=== PATIENT | female | born 1965 | race Caucasian/White ===

== ENCOUNTER 2019-02-13 12:24 | Emergency (ER) | payer OTHER ==
[~2019-02-13] VITALS: Ht 162.6 cm; Wt 73.0 kg
[~2019-02-13 12:24] MED LIST: ASPI-611 PO; BUDE10.22 INH; HYDR-4383 PO; METO-539 PO; MULT-342 PO; ROSU10TA2 PO
[2019-02-13] MEDS ORDERED: levetiracetam inj 1,000 MG in normal saline 100ml IV soln 90 ML IV ONE (12:30)
[2019-02-13 13:07] LABS: BASOPHILS % (AUTO) 0.3 % (0-1); EOSINOPHILS # (AUTO) 0.1 X10'3 (0-0.9); EOSINOPHILS % (AUTO) 1.7 % (0-6); HEMATOCRIT 41.7 % (35.0-45.0); HEMOGLOBIN 14.1 g/dl (12.0-16.0); LYMPHOCYTES # (AUTO) 1.8 X10'3 (1.1-4.8); LYMPHOCYTES % (AUTO) 31.4 % (21-51); MEAN CORPUSCULAR HEMOGLOBIN 30.9 PG (27.0-31.0); MEAN CORPUSCULAR HGB CONC 33.8 g/dL (33.0-36.5); MEAN CORPUSCULAR VOLUME 91.4 FL (78-98); MEAN PLATELET VOLUME 6.9 FL (7.4-10.4); MONOCYTES # (AUTO) 0.6 X10'3 (0-0.9); MONOCYTES % (AUTO) 11.1 % (2-12); NEUTROPHILS # (AUTO) 3.2 X10'3 (1.8-7.7); NEUTROPHILS % (AUTO) 55.5 % (42-75); PLATELET COUNT 230 X10'3 (140-440); RED BLOOD COUNT 4.57 X10'6 (4.20-5.60); WHITE BLOOD COUNT 5.8 X10'3 (4.5-11.0)
[2019-02-13 13:18] LABS: ALANINE AMINOTRANSFERASE 29 U/L (12-78); ALBUMIN 3.7 G/DL (3.4-5.0); ALBUMIN/GLOBULIN RATIO 0.9 (1.1-1.5); ALKALINE PHOSPHATASE 88 IU/L (46-116); ANION GAP 12 (8-16); ASPARTATE AMINO TRANSFERASE 13 U/L (10-37); BILIRUBIN,TOTAL 0.5 MG/DL (0.1-1.0); BLOOD UREA NITROGEN 15 MG/DL (7-18); BUN/CREATININE RATIO 17.2 (6.6-38.0); CALCIUM 8.8 MG/DL (8.5-10.1); CHLORIDE 102 MMOL/L (99-107); CREATININE 0.87 MG/DL (0.40-0.90); GLUCOSE 101 MG/DL (70-104); PARTIAL THROMBOPLASTIN TIME 29 SECONDS (22-32); POTASSIUM 3.8 MMOL/L (3.5-5.1); SODIUM 140 MMOL/L (135-145); TOTAL CARBON DIOXIDE 26.3 MMOL/L (24-32); TOTAL PROTEIN 7.7 G/DL (6.4-8.2); eGFR 69 ML/MIN
[2019-02-13 13:19] LABS: ETHANOL < 0.010 GM/DL (0.0-0.010)
--- NOTE | 2019-02-13 13:19 | NUR ---
To CT via WC.
[2019-02-13 13:38] LABS: CLARITY,URINE CLEAR (Clear); COLOR,URINE YELLOW (Yellow); GLUCOSE, URINE NEGATIVE (Neg); KETONES,URINE NEGATIVE (Neg); LEUKOCYTE ESTERASE ,URINE NEGATIVE (Neg); NITRITES, URINE NEGATIVE (Neg); OCCULT BLOOD,URINE TRACE-LYSED (Neg); PROTEIN,URINE NEGATIVE (Neg); UROBILINOGEN,URINE 0.2 E.U/dL (0.2-1.0)
[2019-02-13 13:39] LABS: UA COLLECTION TYPE CLN CATCH MIDSTREAM
[2019-02-13 13:45] LABS: URINE AMPHETAMINE SCREEN NEGATIVE (Neg); URINE BARBITUATE SCREEN NEGATIVE (Neg); URINE BENZODIAZEPINES SCREEN NEGATIVE (Neg); URINE CANNABINOID SCREEN NEGATIVE (Neg); URINE COCAINE SCREEN NEGATIVE (Neg); URINE METHADONE SCREEN NEGATIVE (Neg); URINE OPIATE SCREEN NEGATIVE (Neg); URINE PHENCYCLIDINE SCREEN NEGATIVE (Neg)
[2019-02-13 13:48] LABS: BACTERIA,URINE NONE SEEN /HPF (Neg); MUCUS STRANDS NONE SEEN /LPF (Neg); RBC,URINE 0-2 /HPF (0-2); SQUAMOUS EPITHELIAL CELL,UR NONE SEEN /LPF (FEW); WBC,URINE NONE SEEN /HPF (0-4)
[2019-02-13] MEDS ORDERED: KEP500T PO (13:57)
[2019-02-13 14:21] VITALS: BP 143/99
[2019-02-13] MEDS ORDERED: MECL-111 PO (16:57)
== END 2019-02-13 14:25 | disposition home or self-care (01) ==
LOC: ER 12:24
DX: R56.9 Unspecified convulsions (principal); E78.00 Pure hypercholesterolemia, unspecified; I10 Essential (primary) hypertension; E11.9 Type 2 diabetes mellitus without complications; Z90.710 Acquired absence of both cervix and uterus; Z98.890 Other specified postprocedural states; Z91.040 Latex allergy status; Z88.2 Allergy status to sulfonamides; Z79.82 Long term (current) use of aspirin; Z79.899 Other long term (current) drug therapy
CPT/HCPCS: 36415; 70450; 71045; 80053; 80305; 80320; 81001; 85025; 85610; 85730; 93005; 99284; J1953; 96365

== ENCOUNTER 2019-02-13 16:10 | Emergency (ER) | payer OTHER ==
[~2019-02-13] VITALS: Ht 162.6 cm; Wt 73.6 kg
[~2019-02-13 16:10] MED LIST changes: +KEP500T PO
[2019-02-13 16:23] VITALS: BP 137/97
[2019-02-13] MEDS ORDERED: ketorolac trometh inj. 60 MG/2 ML VIAL IM ONE (16:50)
[2019-02-13] MEDS ORDERED: MECL-111 PO (16:57)
== END 2019-02-13 17:17 | disposition home or self-care (01) ==
LOC: ER 16:11
DX: R42 Dizziness and giddiness (principal); M54.2 Cervicalgia; E78.00 Pure hypercholesterolemia, unspecified; I10 Essential (primary) hypertension; Z90.710 Acquired absence of both cervix and uterus; Z98.890 Other specified postprocedural states; Z88.2 Allergy status to sulfonamides; Z91.040 Latex allergy status; Z79.82 Long term (current) use of aspirin; Z79.899 Other long term (current) drug therapy
CPT/HCPCS: 93005; 96372; 99283; J1885

== ENCOUNTER 2020-11-18 20:59 | Emergency (ER) | payer OTHER ==
[~2020-11-18] VITALS: Ht 193 cm; Wt 82.3 kg
[~2020-11-18 20:59] MED LIST changes: +MECL-159 PO
[2020-11-18 23:41] LABS: BASOPHILS # (AUTO) 0.1 X10'3 (0-0.2); BASOPHILS % (AUTO) 0.5 % (0-1); EOSINOPHILS # (AUTO) 0.2 X10'3 (0-0.9); EOSINOPHILS % (AUTO) 1.1 % (0-6); HEMATOCRIT 43.1 % (35.0-45.0); HEMOGLOBIN 14.3 g/dl (12.0-16.0); LYMPHOCYTES # (AUTO) 2.6 X10'3 (1.1-4.8); LYMPHOCYTES % (AUTO) 16.6 % (21-51); MEAN CORPUSCULAR HEMOGLOBIN 30.2 PG (27.0-31.0); MEAN CORPUSCULAR HGB CONC 33.1 g/dL (33.0-36.5); MEAN CORPUSCULAR VOLUME 91.2 FL (78-98); MEAN PLATELET VOLUME 6.8 FL (7.4-10.4); MONOCYTES # (AUTO) 1.3 X10'3 (0-0.9); MONOCYTES % (AUTO) 8.2 % (2-12); NEUTROPHILS # (AUTO) 11.4 X10'3 (1.8-7.7); NEUTROPHILS % (AUTO) 73.6 % (42-75); PLATELET COUNT 306 X10'3 (140-440); RED BLOOD COUNT 4.73 X10'6 (4.20-5.60); RED CELL DISTRIBUTION WIDTH 13.1 % (11.5-14.5); WHITE BLOOD COUNT 15.5 X10'3 (4.5-11.0)
[2020-11-18 23:54] LABS: ALANINE AMINOTRANSFERASE 41 U/L (12-78); ALBUMIN 3.9 G/DL (3.4-5.0); ALKALINE PHOSPHATASE 100 IU/L (46-116); ANION GAP 10 (8-16); ASPARTATE AMINO TRANSFERASE 22 U/L (10-37); BILIRUBIN,TOTAL 0.4 MG/DL (0.1-1.0); BLOOD UREA NITROGEN 11 MG/DL (7-18); BUN/CREATININE RATIO 12.9 (6.6-38.0); CALCIUM 9.3 MG/DL (8.5-10.1); CHLORIDE 103 MMOL/L (99-107); CREATININE 0.85 MG/DL (0.40-0.90); GLUCOSE 112 MG/DL (70-104); LIPASE 250 U/L (73-393); POTASSIUM 3.8 MMOL/L (3.5-5.1); SODIUM 139 MMOL/L (135-145); TOTAL CARBON DIOXIDE 26.1 MMOL/L (24-32); TOTAL PROTEIN 7.8 G/DL (6.4-8.2); eGFR 70 ML/MIN
[2020-11-19] MEDS ORDERED: fentaNYL/PF 50MCG/1 ML 2ML syringe IV ONE (00:10)
[2020-11-19] MEDS ORDERED: ondansetron/PF 4mg/2ml inj IV ONE (00:10)
[2020-11-19] MEDS ORDERED: ONDA8TAB13 PO (00:54)
[2020-11-19] MEDS ORDERED: HYDR-3965 PO (00:54)
[2020-11-19] MEDS ORDERED: ketorolac trometh. 30mg/ml inj. IV ONE (00:55)
[2020-11-19 01:32] VITALS: BP 122/76
[2020-11-20] MEDS ORDERED: OXYC-150 PO (23:01)
== END 2020-11-19 01:33 | disposition home or self-care (01) ==
LOC: ER 21:00
DX: R10.11 Right upper quadrant pain (principal); R10.31 Right lower quadrant pain; E78.00 Pure hypercholesterolemia, unspecified; I10 Essential (primary) hypertension; E03.9 Hypothyroidism, unspecified; Z90.49 Acquired absence of other specified parts of digestive tract; Z90.710 Acquired absence of both cervix and uterus; Z98.890 Other specified postprocedural states; Z91.040 Latex allergy status; Z88.2 Allergy status to sulfonamides; Z79.82 Long term (current) use of aspirin; Z79.899 Other long term (current) drug therapy
CPT/HCPCS: 36415; 74176; 80053; 83690; 85025; 96374; 96375; 99284; J1885; J2405; J3010

== ENCOUNTER 2020-11-20 20:28 | Emergency (ER) | payer OTHER ==
[~2020-11-20] VITALS: Ht 162.6 cm; Wt 82.3 kg
[~2020-11-20 20:28] MED LIST changes: +HYDR-3965 PO; +ONDA8TAB13 PO
[2020-11-20 20:58] LABS: BASOPHILS # (AUTO) 0.1 X10'3 (0-0.2); BASOPHILS % (AUTO) 0.8 % (0-1); EOSINOPHILS # (AUTO) 0.1 X10'3 (0-0.9); EOSINOPHILS % (AUTO) 1.8 % (0-6); HEMATOCRIT 37.8 % (35.0-45.0); HEMOGLOBIN 12.7 g/dl (12.0-16.0); LYMPHOCYTES # (AUTO) 2.4 X10'3 (1.1-4.8); LYMPHOCYTES % (AUTO) 34.1 % (21-51); MEAN CORPUSCULAR HEMOGLOBIN 30.7 PG (27.0-31.0); MEAN CORPUSCULAR HGB CONC 33.6 g/dL (33.0-36.5); MEAN CORPUSCULAR VOLUME 91.6 FL (78-98); MEAN PLATELET VOLUME 6.6 FL (7.4-10.4); MONOCYTES # (AUTO) 0.8 X10'3 (0-0.9); MONOCYTES % (AUTO) 11.2 % (2-12); NEUTROPHILS # (AUTO) 3.6 X10'3 (1.8-7.7); NEUTROPHILS % (AUTO) 52.1 % (42-75); PLATELET COUNT 262 X10'3 (140-440); RED BLOOD COUNT 4.13 X10'6 (4.20-5.60); WHITE BLOOD COUNT 6.9 X10'3 (4.5-11.0)
[2020-11-20 21:06] LABS: ALANINE AMINOTRANSFERASE 32 U/L (12-78); ALBUMIN 3.5 G/DL (3.4-5.0); ALBUMIN/GLOBULIN RATIO 0.9 (1.1-1.5); ALKALINE PHOSPHATASE 88 IU/L (46-116); ANION GAP 8 (8-16); ASPARTATE AMINO TRANSFERASE 14 U/L (10-37); BILIRUBIN,TOTAL 0.3 MG/DL (0.1-1.0); BLOOD UREA NITROGEN 8 MG/DL (7-18); BUN/CREATININE RATIO 8.9 (6.6-38.0); CHLORIDE 106 MMOL/L (99-107); GLUCOSE 123 MG/DL (70-104); POTASSIUM 3.6 MMOL/L (3.5-5.1); SODIUM 143 MMOL/L (135-145); TOTAL CARBON DIOXIDE 28.6 MMOL/L (24-32); TOTAL PROTEIN 7.5 G/DL (6.4-8.2); eGFR 65 ML/MIN
[2020-11-20] MEDS ORDERED: oxyCODONE/APAP 10/325mg tablet PO ONE (23:00)
[2020-11-20] MEDS ORDERED: OXYC-150 PO (23:01)
[2020-11-20 23:16] VITALS: BP 114/70
[2020-11-21] MEDS ORDERED: LISI-790 PO (12:38)
[2020-11-21] MEDS ORDERED: LEVO25TA7 PO (12:39)
[2020-11-21] MEDS ORDERED: ONDA4TAB12 PO (12:40)
[2020-11-21] MEDS ORDERED: LEVE500T99 PO (12:41)
[2020-11-21] MEDS ORDERED: BUDE10.26 IH (13:43)
[2020-11-21] MEDS ORDERED: LIDO1ADH78 TD (13:44)
[2020-11-21] MEDS ORDERED: HYDR-3965 PO (13:45)
== END 2020-11-20 23:17 | disposition home or self-care (01) ==
LOC: ER 20:28
DX: K92.1 Melena (principal); R10.31 Right lower quadrant pain; R42 Dizziness and giddiness; E78.00 Pure hypercholesterolemia, unspecified; I10 Essential (primary) hypertension; E03.9 Hypothyroidism, unspecified; Z90.49 Acquired absence of other specified parts of digestive tract; Z90.710 Acquired absence of both cervix and uterus; Z98.890 Other specified postprocedural states; Z88.2 Allergy status to sulfonamides; Z91.040 Latex allergy status; Z79.82 Long term (current) use of aspirin; Z79.899 Other long term (current) drug therapy
CPT/HCPCS: 36415; 80053; 85025; 99283

== ENCOUNTER 2020-11-21 08:13 | Inpatient (IN) | payer OTHER ==
[~2020-11-21] VITALS: Ht 162.6 cm; Wt 82.3 kg
[~2020-11-21 08:13] MED LIST changes: +OXYC-150 PO
[2020-11-21 09:08] LABS: BASOPHILS % (AUTO) 0.2 % (0-1); EOSINOPHILS # (AUTO) 0.1 X10'3 (0-0.9); EOSINOPHILS % (AUTO) 0.7 % (0-6); HEMATOCRIT 36.2 % (35.0-45.0); HEMOGLOBIN 12.2 g/dl (12.0-16.0); LYMPHOCYTES % (AUTO) 11.3 % (21-51); MEAN CORPUSCULAR HGB CONC 33.8 g/dL (33.0-36.5); MEAN CORPUSCULAR VOLUME 91.6 FL (78-98); MEAN PLATELET VOLUME 6.7 FL (7.4-10.4); MONOCYTES # (AUTO) 0.7 X10'3 (0-0.9); MONOCYTES % (AUTO) 7.6 % (2-12); NEUTROPHILS # (AUTO) 7.3 X10'3 (1.8-7.7); NEUTROPHILS % (AUTO) 80.2 % (42-75); PLATELET COUNT 254 X10'3 (140-440); RED BLOOD COUNT 3.95 X10'6 (4.20-5.60); RED CELL DISTRIBUTION WIDTH 13.1 % (11.5-14.5)
[2020-11-21 09:21] LABS: PARTIAL THROMBOPLASTIN TIME 28 SECONDS (22-32)
[2020-11-21 09:24] LABS: ALANINE AMINOTRANSFERASE 28 U/L (12-78); ALBUMIN 3.4 G/DL (3.4-5.0); ALBUMIN/GLOBULIN RATIO 0.9 (1.1-1.5); ALKALINE PHOSPHATASE 78 IU/L (46-116); ANION GAP 10 (8-16); ASPARTATE AMINO TRANSFERASE 17 U/L (10-37); BILIRUBIN,TOTAL 0.3 MG/DL (0.1-1.0); BLOOD UREA NITROGEN 10 MG/DL (7-18); BUN/CREATININE RATIO 10.3 (6.6-38.0); CALCIUM 8.5 MG/DL (8.5-10.1); CHLORIDE 104 MMOL/L (99-107); CREATININE 0.97 MG/DL (0.40-0.90); GLUCOSE 107 MG/DL (70-104); POTASSIUM 3.5 MMOL/L (3.5-5.1); SODIUM 141 MMOL/L (135-145); TOTAL CARBON DIOXIDE 27.3 MMOL/L (24-32); TOTAL PROTEIN 7.2 G/DL (6.4-8.2); eGFR 60 ML/MIN
[2020-11-21] MEDS ORDERED: iohexol 300mg/ml 100ml inj. ONE (09:47)
[2020-11-21 10:10] LABS: CLARITY,URINE CLEAR (Clear); COLOR,URINE STRAW (Yellow); GLUCOSE, URINE NEGATIVE (Neg); KETONES,URINE NEGATIVE (Neg); LEUKOCYTE ESTERASE ,URINE NEGATIVE (Neg); NITRITES, URINE NEGATIVE (Neg); OCCULT BLOOD,URINE TRACE-LYSED (Neg); PH,URINE 5.5 (4.8-8.0); PROTEIN,URINE NEGATIVE (Neg); UROBILINOGEN,URINE 0.2 E.U/dL (0.2-1.0)
[2020-11-21 10:11] LABS: UA COLLECTION TYPE CLN CATCH MIDSTREAM
[2020-11-21 10:18] LABS: BACTERIA,URINE FEW /HPF (Neg); RBC,URINE 0-2 /HPF (0-2); SQUAMOUS EPITHELIAL CELL,UR FEW /LPF (FEW); WBC,URINE 0-4 /HPF (0-4)
[2020-11-21] MEDS ORDERED: mag hydrox/Alum hydrox/simeth 30ml oral suspension PO PRN (11:55)
[2020-11-21] MEDS ORDERED: magnesium hydroxide 30ml (MOM) UD suspension PO PRN (11:55)
[2020-11-21] MEDS ORDERED: acetaminophen 325mg tablet PO PRN (11:55)
[2020-11-21] MEDS ORDERED: LISI-790 PO (12:38)
[2020-11-21] MEDS ORDERED: LEVO25TA7 PO (12:39)
[2020-11-21] MEDS ORDERED: ONDA4TAB12 PO (12:40)
[2020-11-21] MEDS ORDERED: LEVE500T99 PO (12:41)
[2020-11-21] MEDS: normal saline 1000ml 1,000 ML IV SCH ×2 (12:48→21:55)
[2020-11-21] MEDS: morphine 2 MG/ML inj. syringe IV PRN (12:48)
[2020-11-21] MEDS ORDERED: BUDE10.26 IH (13:43)
[2020-11-21] MEDS ORDERED: LIDO1ADH78 TD (13:44)
[2020-11-21] MEDS ORDERED: HYDR-3965 PO (13:45)
[2020-11-21] MEDS ORDERED: ondansetron 4mg rapidly disintigrating tab PO PRN (14:25)
[2020-11-21] MEDS ORDERED: HYDROcodone/acetaminophen 5mg/325mg tablet PO PRN (14:25)
--- NOTE | 2020-11-21 14:40 | NUR ---
relieving RN for break, pt is resting quietly in dark room, gave her a warm blanket, waiting for bed assignment
--- NOTE | 2020-11-21 17:18 | NUR ---
PT ASSISTED TO THE BATHROOM, STATES THAT HER RECTAL BLEEDING HAS INCREASED AND THAT HER PAIN LEVEL IS 8/10. PT'S RN, JEM, NOTIFIED
[2020-11-21] MEDS ORDERED: levalbuterol 0.63mg/3ml nebule IH PRN (17:50)
[2020-11-21] MEDS: budesonide 0.5mg/2ml UD nebule IH SCH (20:00)
[2020-11-21] MEDS: metoprolol succinate 25mg (24-HOUR) SR. Tablet PO SCH (20:00)
[2020-11-21] MEDS ORDERED: non-formulary drug (Budesonide/Formoterol Fumarate (Budesonide-Formoterol 160-4.5) 2 PUFFS IH SCH (20:00)
[2020-11-21] MEDS ORDERED: albuterol 2.5 MG/3 ML nebule NEB SCH (20:00)
[2020-11-21] MEDS: levetiracetam 250mg tablet PO SCH (21:22)
[2020-11-21] MEDS: ondansetron/PF 4mg/2ml inj IV PRN (21:27)
[2020-11-21 22:00] VITALS: BP 109/70
[2020-11-22 02:00] VITALS: BP 102/69
[2020-11-22] MEDS: morphine 2 MG/ML inj. syringe IV PRN ×2 (02:26→22:45)
[2020-11-22] MEDS: normal saline 1000ml 1,000 ML IV SCH ×3 (02:32→22:48)
[2020-11-22 06:00] VITALS: BP 90/56
--- NOTE | 2020-11-22 06:22 | NUR ---
Patient in room PCU 3023. I have received report from NAYA Keene and had the opportunity to ask questions and assume patient care.
--- NOTE | 2020-11-22 06:22 | NUR ---
report, patient plan of care given to and discussed with NAYA Gomez.
[2020-11-22 07:40] LABS: BASOPHILS % (AUTO) 0.3 % (0-1); EOSINOPHILS # (AUTO) 0.1 X10'3 (0-0.9); EOSINOPHILS % (AUTO) 2.5 % (0-6); HEMATOCRIT 32.9 % (35.0-45.0); HEMOGLOBIN 11.3 g/dl (12.0-16.0); LYMPHOCYTES % (AUTO) 44.1 % (21-51); MEAN CORPUSCULAR HGB CONC 34.2 g/dL (33.0-36.5); MEAN CORPUSCULAR VOLUME 93.4 FL (78-98); MEAN PLATELET VOLUME 6.8 FL (7.4-10.4); MONOCYTES # (AUTO) 0.5 X10'3 (0-0.9); MONOCYTES % (AUTO) 12.1 % (2-12); NEUTROPHILS # (AUTO) 1.9 X10'3 (1.8-7.7); PLATELET COUNT 230 X10'3 (140-440); RED BLOOD COUNT 3.52 X10'6 (4.20-5.60); RED CELL DISTRIBUTION WIDTH 12.9 % (11.5-14.5); WHITE BLOOD COUNT 4.5 X10'3 (4.5-11.0)
[2020-11-22] MEDS: multivitamins, therapeutics tablet PO SCH (07:46)
[2020-11-22] MEDS: levoTHYROXINE 25mcg tablet PO SCH (07:47)
[2020-11-22] MEDS: levetiracetam 250mg tablet PO SCH ×2 (07:47→19:18)
[2020-11-22] MEDS: atorvastatin 20mg tablet PO SCH (07:55)
[2020-11-22 07:56] LABS: ALBUMIN 2.9 G/DL (3.4-5.0); ANION GAP 10 (8-16); BLOOD UREA NITROGEN 11 MG/DL (7-18); BUN/CREATININE RATIO 13.1 (6.6-38.0); CALCIUM 8.5 MG/DL (8.5-10.1); CHLORIDE 110 MMOL/L (99-107); CREATININE 0.84 MG/DL (0.40-0.90); GLUCOSE 81 MG/DL (70-104); POTASSIUM 3.5 MMOL/L (3.5-5.1); SODIUM 144 MMOL/L (135-145); TOTAL CARBON DIOXIDE 24.1 MMOL/L (24-32); eGFR 71 ML/MIN
[2020-11-22] MEDS: LIDOcaine 5% patch TP SCH (07:56)
[2020-11-22] MEDS: lisinopril 5mg tablet PO SCH (08:00)
[2020-11-22] MEDS: metoprolol succinate 25mg (24-HOUR) SR. Tablet PO SCH ×2 (08:00→19:19)
[2020-11-22] MEDS: budesonide 0.5mg/2ml UD nebule IH SCH ×2 (08:04→20:08)
[2020-11-22 11:00] VITALS: BP 106/70
[2020-11-22] MEDS ORDERED: PEG 3350/Na sulf,bicarb,Cl/KCl oral sol 4 liter bottle PO ONE (14:15)
[2020-11-22 18:00] VITALS: BP 124/88
--- NOTE | 2020-11-22 18:21 | NUR ---
Problems reprioritized. Patient report given, questions answered & plan of care reviewed with NAYA Perry.
[2020-11-22] MEDS: metroNIDAZOLE-Flagyl 500mg/NS 100 ML IV SCH (19:19)
[2020-11-22] MEDS: ciprofloxacin lact 400MG/200ML 200 ML IV SCH (19:19)
[2020-11-22 22:00] VITALS: BP 138/71
[2020-11-23] VITALS (9 sets, daily range): BP systolic 105–129; BP diastolic 60–90
[2020-11-23] MEDS: metroNIDAZOLE-Flagyl 500mg/NS 100 ML IV SCH ×3 (00:06→15:19)
--- NOTE | 2020-11-23 06:12 | NUR ---
Problems reprioritized. Patient report given, questions answered & plan of care reviewed with NAYA Gomez.
[2020-11-23] MEDS: levetiracetam 250mg tablet PO SCH ×2 (07:15→19:25)
[2020-11-23] MEDS: levoTHYROXINE 25mcg tablet PO SCH (07:15)
[2020-11-23 07:28] LABS: BASOPHILS % (AUTO) 0.3 % (0-1); EOSINOPHILS # (AUTO) 0.1 X10'3 (0-0.9); EOSINOPHILS % (AUTO) 2.5 % (0-6); HEMATOCRIT 31.4 % (35.0-45.0); HEMOGLOBIN 10.7 g/dl (12.0-16.0); LYMPHOCYTES # (AUTO) 1.5 X10'3 (1.1-4.8); LYMPHOCYTES % (AUTO) 30.5 % (21-51); MEAN CORPUSCULAR HEMOGLOBIN 31.2 PG (27.0-31.0); MEAN CORPUSCULAR HGB CONC 34.2 g/dL (33.0-36.5); MEAN CORPUSCULAR VOLUME 91.2 FL (78-98); MEAN PLATELET VOLUME 6.8 FL (7.4-10.4); MONOCYTES # (AUTO) 0.6 X10'3 (0-0.9); MONOCYTES % (AUTO) 11.8 % (2-12); NEUTROPHILS # (AUTO) 2.7 X10'3 (1.8-7.7); NEUTROPHILS % (AUTO) 54.9 % (42-75); PLATELET COUNT 222 X10'3 (140-440); RED BLOOD COUNT 3.44 X10'6 (4.20-5.60); RED CELL DISTRIBUTION WIDTH 12.9 % (11.5-14.5)
[2020-11-23 07:49] LABS: ANION GAP 11 (8-16); BLOOD UREA NITROGEN 9 MG/DL (7-18); BUN/CREATININE RATIO 11.5 (6.6-38.0); CALCIUM 8.1 MG/DL (8.5-10.1); CHLORIDE 107 MMOL/L (99-107); CREATININE 0.78 MG/DL (0.40-0.90); GLUCOSE 92 MG/DL (70-104); POTASSIUM 3.3 MMOL/L (3.5-5.1); SODIUM 145 MMOL/L (135-145); TOTAL CARBON DIOXIDE 26.9 MMOL/L (24-32); eGFR 77 ML/MIN
[2020-11-23] MEDS: budesonide 0.5mg/2ml UD nebule IH SCH ×2 (07:55→20:38)
[2020-11-23] MEDS: LIDOcaine 5% patch TP SCH (08:00)
[2020-11-23] MEDS: atorvastatin 20mg tablet PO SCH (08:00)
[2020-11-23] MEDS ORDERED: MIDAZolam 1 MG/ML 5ML VIAL ONE (09:08)
[2020-11-23] MEDS ORDERED: fentaNYL/PF 50MCG/1 ML 2ML syringe ONE (09:08)
[2020-11-23] MEDS: lisinopril 5mg tablet PO SCH (12:31)
[2020-11-23] MEDS: multivitamins, therapeutics tablet PO SCH (12:31)
[2020-11-23] MEDS: metoprolol succinate 25mg (24-HOUR) SR. Tablet PO SCH ×2 (12:32→19:26)
[2020-11-23] MEDS: ciprofloxacin lact 400MG/200ML 200 ML IV SCH ×2 (12:33→19:26)
[2020-11-23] MEDS ORDERED: potassium Cl 20 mEq SR tablet PO PRN (14:15)
[2020-11-23] MEDS ORDERED: potassium Cl 40MEQ/1/2NS 520ml 520 ML IV PRN (14:15)
[2020-11-23] MEDS ORDERED: magnesium Cl slow-release 64mg tablet PO PRN (14:15)
[2020-11-23] MEDS ORDERED: magnesium 4gm in 100ml NS 100 ML IV PRN (14:15)
[2020-11-23] MEDS: potassium Cl 20 mEq SR tablet PO PRN ×2 (14:23→19:25)
[2020-11-23] MEDS: normal saline 1000ml 1,000 ML IV SCH ×2 (14:26→23:55)
--- NOTE | 2020-11-23 18:05 | NUR ---
report received from, plan of care discussed with NAYA Gomez
--- NOTE | 2020-11-23 18:22 | NUR ---
Problems reprioritized. Patient report given, questions answered & plan of care reviewed with NAYA Fonseca.
[2020-11-23] MEDS: K and/or MAG REPLACEMENT MC SCH (19:26)
[2020-11-24] MEDS: metroNIDAZOLE-Flagyl 500mg/NS 100 ML IV SCH ×2 (00:15→08:54)
[2020-11-24 02:00] VITALS: BP 91/53
[2020-11-24] MEDS: ondansetron/PF 4mg/2ml inj IV PRN (04:18)
[2020-11-24] MEDS: normal saline 1000ml 1,000 ML IV SCH (05:04)
[2020-11-24 06:00] VITALS: BP 93/62
[2020-11-24 06:46] LABS: ALBUMIN 3.1 G/DL (3.4-5.0); ANION GAP 11 (8-16); BLOOD UREA NITROGEN 4 MG/DL (7-18); BUN/CREATININE RATIO 5.4 (6.6-38.0); CALCIUM 8.4 MG/DL (8.5-10.1); CHLORIDE 108 MMOL/L (99-107); CREATININE 0.74 MG/DL (0.40-0.90); GLUCOSE 91 MG/DL (70-104); POTASSIUM 3.6 MMOL/L (3.5-5.1); SODIUM 143 MMOL/L (135-145); eGFR 82 ML/MIN
--- NOTE | 2020-11-24 06:51 | NUR ---
Patient in room PCU 3023. I have received report from Raymundo PERSON and had the opportunity to ask questions and assume patient care.
[2020-11-24 06:55] LABS: BASOPHILS % (AUTO) 0.2 % (0-1); EOSINOPHILS # (AUTO) 0.1 X10'3 (0-0.9); EOSINOPHILS % (AUTO) 1.6 % (0-6); HEMATOCRIT 32.9 % (35.0-45.0); HEMOGLOBIN 11.3 g/dl (12.0-16.0); LYMPHOCYTES # (AUTO) 1.6 X10'3 (1.1-4.8); LYMPHOCYTES % (AUTO) 26.9 % (21-51); MEAN CORPUSCULAR HEMOGLOBIN 31.5 PG (27.0-31.0); MEAN CORPUSCULAR HGB CONC 34.4 g/dL (33.0-36.5); MEAN CORPUSCULAR VOLUME 91.8 FL (78-98); MONOCYTES # (AUTO) 0.6 X10'3 (0-0.9); MONOCYTES % (AUTO) 9.7 % (2-12); NEUTROPHILS # (AUTO) 3.6 X10'3 (1.8-7.7); NEUTROPHILS % (AUTO) 61.6 % (42-75); PLATELET COUNT 248 X10'3 (140-440); RED BLOOD COUNT 3.58 X10'6 (4.20-5.60); WHITE BLOOD COUNT 5.8 X10'3 (4.5-11.0)
[2020-11-24] MEDS: LIDOcaine 5% patch TP SCH (08:00)
[2020-11-24] MEDS: budesonide 0.5mg/2ml UD nebule IH SCH (08:00)
[2020-11-24] MEDS: K and/or MAG REPLACEMENT MC SCH (08:00)
[2020-11-24] MEDS: atorvastatin 20mg tablet PO SCH (08:00)
[2020-11-24] MEDS: ciprofloxacin lact 400MG/200ML 200 ML IV SCH (08:54)
[2020-11-24] MEDS: levetiracetam 250mg tablet PO SCH (08:58)
[2020-11-24] MEDS: lisinopril 5mg tablet PO SCH (08:59)
[2020-11-24] MEDS: levoTHYROXINE 25mcg tablet PO SCH (09:00)
[2020-11-24] MEDS: metoprolol succinate 25mg (24-HOUR) SR. Tablet PO SCH (09:00)
[2020-11-24] MEDS: multivitamins, therapeutics tablet PO SCH (09:00)
[2020-11-24] MEDS ORDERED: LEVA15HF4 INH (10:53)
[2020-11-24] MEDS ORDERED: METR-159 PO (10:53)
[2020-11-24] MEDS ORDERED: CIPR-202 PO (10:53)
[2020-11-24 11:00] VITALS: BP 117/73
[2020-11-24] MEDS ORDERED: ciprofloxacin 250mg tablet PO ONE (11:30)
[2020-11-24] MEDS ORDERED: metroNIDAZOLE 500mg tablet PO ONE (11:30)
--- NOTE | 2020-11-24 12:57 | NUR ---
Administered antibiotics per doctors orders.
--- NOTE | 2020-11-24 13:05 | NUR ---
Patient safe to discharge per Dr orders. Medications and discharge instructions discussed with patient, with ability to ask questions. PIV discontinued cannula intact. Telemetry discontinued. Belongings sent with patient. Wheeled to lobby by nursing staff. When home in private vehicle with spouse.
== END 2020-11-24 13:05 | disposition home or self-care (01) | DRG 395 ==
LOC: ER 08:13 → ED HOLD 11:52 → PCU 3S 20:10 → OBSVTOIN 11-22 14:00
PROVIDERS: ADMIT Family Medicine; ATTEND Family Medicine
PROC: BW211ZZ Computerized Tomography (CT Scan) of Abdomen and Pelvis using Low Osmolar Contrast (ICD-10-PCS; principal; 2020-11-21)
PROC: 0DJD8ZZ Inspection of Lower Intestinal Tract, Via Natural or Artificial Opening Endoscopic (ICD-10-PCS; 2020-11-23)
DX: K63.3 Ulcer of intestine (principal); E03.9 Hypothyroidism, unspecified; E78.00 Pure hypercholesterolemia, unspecified; E78.5 Hyperlipidemia, unspecified; G40.909 Epilepsy, unspecified, not intractable, without status epilepticus; K64.8 Other hemorrhoids; K57.30 Diverticulosis of large intestine without perforation or abscess without bleeding; I10 Essential (primary) hypertension; Z90.710 Acquired absence of both cervix and uterus; Z90.49 Acquired absence of other specified parts of digestive tract; Z98.51 Tubal ligation status; Z88.2 Allergy status to sulfonamides; Z91.040 Latex allergy status; Z83.3 Family history of diabetes mellitus; Z80.9 Family history of malignant neoplasm, unspecified
CPT/HCPCS: 36415; 45378; 71045; 74177; 80048; 80053; 81001; 84443; 85025; 85610; 85730; 86885; 86900; 86901; 87081; 94640; 94760; 99152; 99153; 99285; A4620; G0378; J0744; J2250; J2270; J2405; J3010; J3490; J7030; J7040; J7626; Q9967

== ENCOUNTER 2022-10-24 11:47 | Emergency (ER) | payer OTHER ==
[~2022-10-24] VITALS: Ht 162.6 cm; Wt 73.0 kg
[~2022-10-24 11:47] MED LIST changes: -ASPI-611 PO; -BUDE10.22 INH; +BUDE10.26 IH; -HYDR-4383 PO; -KEP500T PO; +LEVA15HF4 INH; +LEVE500T99 PO; +LEVO25TA7 PO; +LIDO1ADH78 TD; +LISI5TAB22 PO; -MECL-159 PO; +ONDA4TAB12 PO; -ONDA8TAB13 PO; -OXYC-150 PO
[2022-10-24 12:08] VITALS: BP 143/100
== END 2022-10-24 14:27 | disposition home or self-care (01) ==
LOC: ER 11:48
DX: M79.661 Pain in right lower leg (principal); I10 Essential (primary) hypertension; E78.00 Pure hypercholesterolemia, unspecified; E03.9 Hypothyroidism, unspecified; G89.29 Other chronic pain; M54.50 Low back pain, unspecified; Z91.040 Latex allergy status; Z88.2 Allergy status to sulfonamides; Z90.49 Acquired absence of other specified parts of digestive tract; Z90.710 Acquired absence of both cervix and uterus
CPT/HCPCS: 73590; 99283